=== PATIENT | male | born 1960 | race Caucasian/White ===

== ENCOUNTER 2020-05-31 05:38 | Day surgery (SDC) | payer OTHER ==
[~2020-05-31] VITALS: Ht 167.6 cm; Wt 83.2 kg
[~2020-05-31 05:38] MED LIST: ALBU8HFA IH; D-ME473S53 PO; FLUO-191 PO; FLUT16H NASAL; FLUT1BLS13 PUFF; LEVO-72 PO; OMEG-135 PO; OMEP20 PO; PRED10 PO; VALS160T2 PO
[2020-05-31] MEDS ORDERED: SODIUM CHLORIDE 0.9% 1,000 ML ONE (05:41)
[2020-05-31] MEDS ORDERED: SODIUM CHLORIDE 0.9% 1,000 ML IV ONE (06:30)
[2020-05-31] MEDS ORDERED: MIDAZOLAM HCL 2 MG/2 ML VIAL ONE (08:13)
[2020-05-31] MEDS ORDERED: FentaNYL CITRATE-PF 100 MCG/2 ML VIAL ONE (08:13)
[2020-05-31] MEDS ORDERED: MethylPREDNISolone SOD SUCC 125 MG/2 ML VIAL IVP ONE (08:45)
[2020-05-31] MEDS ORDERED: MethylPREDNISolone SOD SUCC 125 MG/2 ML VIAL ONE (08:48)
[2020-05-31] MEDS ORDERED: ALBUTEROL SULFATE 2.5 MG/0.5 ML NEB SOLUTION NEB ONE ×3 (09:16→17:55)
[2020-05-31] MEDS ORDERED: LIDOCAINE 2% 30 ML JELLY ONE (17:55)
[2020-05-31] MEDS ORDERED: BENZOCAINE 20% 50 MCG/SPRAY 57 GM ONE (17:55)
[2020-05-31] MEDS ORDERED: LIDOCAINE 4% 50 ML SOLUTION ONE (17:55)
[2020-05-31] MEDS ORDERED: OXYGEN THERAPY IH SCH (20:00)
== END 2020-05-31 10:20 | disposition home or self-care (01) ==
LOC: SURGERY 05:38
PROVIDERS: ATTEND Internal Medicine Critical Care Medicine
DX: J38.4 Edema of larynx (principal); B37.0 Candidal stomatitis; Z11.59 Encounter for screening for other viral diseases; F17.210 Nicotine dependence, cigarettes, uncomplicated
CPT/HCPCS: 31623; 31624; 71045; 87015; 87070; 87101; 87205; 87206; 87220; 87635; 88108; 88312; J2250; J2930; J3010; J7030; J7613; Z7610

== ENCOUNTER 2022-05-12 05:59 | Day surgery (SDC) | payer OTHER ==
[2022-05-11 10:30] LABS: COVID AG,FIA SOURCE NASOPHARYNGEAL
[~2022-05-12] VITALS: Ht 165.1 cm; Wt 79.5 kg
[~2022-05-12 05:59] MED LIST changes: -ALBU8HFA IH; -D-ME473S53 PO; -FLUO-191 PO; -FLUT16H NASAL; -FLUT1BLS13 PUFF; -LEVO-72 PO; +METF-1211 PO; +OMEG-108 PO; -OMEG-135 PO; -PRED10 PO; +SODIUM CHLORIDE 0.9% 1,000 ML IV ONE
[2022-05-12] MEDS ORDERED: SODIUM CHLORIDE 0.9% 1,000 ML ONE (07:04)
[2022-05-12 07:36] LABS: GLUCOMETER DEV NAME(LOC) SDS.; GLUCOSE,POINT OF CARE 159 MG/DL (70-110)
[2022-05-12] MEDS ORDERED: FentaNYL CITRATE PF 100 MCG/2 ML VIAL ONE (08:18)
[2022-05-12] MEDS ORDERED: MIDAZOLAM HCL 5 MG/ML VIAL ONE (08:18)
[2022-05-12] MEDS ORDERED: SODIUM CHLORIDE 0.9% 10 ML ONE (08:28)
[2022-05-12] MEDS ORDERED: MethylPREDNISolone SOD SUCC 125 MG/2 ML VIAL ONE (09:08)
[2022-05-12] MEDS ORDERED: MethylPREDNISolone SOD SUCC 125 MG/2 ML VIAL IVP ONE (09:15)
[2022-05-12] MEDS ORDERED: OXYGEN THERAPY IH SCH (20:00)
== END 2022-05-12 11:10 | disposition home or self-care (01) ==
LOC: SURGERY 05:59
PROVIDERS: ATTEND Internal Medicine Critical Care Medicine
DX: J38.4 Edema of larynx (principal); B37.0 Candidal stomatitis; Z79.899 Other long term (current) drug therapy; E11.9 Type 2 diabetes mellitus without complications; Z98.890 Other specified postprocedural states
CPT/HCPCS: 87426; 31623; 88112; 82962; 87206; 87101; 87220; 87070; 88305; 88312; 31624; 71045; 87015; C9803; J3010; J2930; J2250; J7030